=== PATIENT | male | born 1930 | race Caucasian/White ===

== ENCOUNTER 2016-10-15 06:58 | Day surgery (SDC) | payer OTHER, MEDICARE ==
[~2016-10-15 06:58] MED LIST: Lactated Ringers 1,000 ML IV SCH; Lidocaine 1%/Sod Bicarbonate in NS 8.4% 1 ML Syringe PRN; Sodium Chloride 0.9% 10 ML Syringe FLUSH PRN
[2016-10-15] MEDS ORDERED: Lidocaine 1% 2 ML ONE (07:37)
[2016-10-15] MEDS ORDERED: Lidocaine 1% 6 ML ONE (07:38)
[2016-10-15] MEDS ORDERED: fentaNYL 100 MCG/2 ML SDV ONE (07:38)
[2016-10-15] MEDS ORDERED: Propofol 200 MG/20 ML SDV ONE (07:38)
[2016-10-15] MEDS ORDERED: Carvedilol 12.5 MG Tab PO ONE (07:51)
[2016-10-15] MEDS ORDERED: Carvedilol 6.25 MG Tab PO ONE (07:52)
--- NOTE | 2016-10-15 08:03 | PCM.PREANE ---
Preanesthetic Assessment - Procedure Proposed Procedure: Colonoscopy - Anesthesia/Transfusion/Family Hx Anesthesia History: Prior Anesthesia Without Reaction Family History of Anesthesia Reaction: No - Review of Systems General: No Symptoms Pulmonary: Shortness of Breath Cardiovascular: Chest Pain (with palpitations), Palpitations, Dyspnea on Exertion Gastrointestinal: Diarrhea, Hematochezia Other: Reports: Easy Bruising, Thyroid Problems (hypothyroidism) - Physical Assessment NPO Status Date: 10/14/16 NPO Status Time: 20:00 O2 Sat by Pulse Oximetry: 95 Respiratory Rate: 18 Vital Signs: Last Vital Signs Temp 36.5 C 10/15/16 07:20 Pulse 64 10/15/16 07:20 Resp 18 10/15/16 07:20 BP 143/70 H 10/15/16 07:20 Pulse Ox 95 10/15/16 07:20 Weight: 101.1 kg ASA Class: 3 Mental Status: Alert & Oriented x3 Airway Class: Mallampati = 2 Dentition: Reports: Dentures (upper and lower), Edentulous Thyro-Mental Finger Breadths: 3 Mouth Opening Finger Breadths: 3 ROM/Head Extension: Full Lungs: Clear to auscultation, Normal respiratory effort Cardiovascular: Regular Rate, Regular Rhythm, No Murmurs - Lab Values: 09/28/16 from [place] hgb 10.5 PLT 186 lytes normal except mildly elevated creatinine 1.37 - Imaging/EKG Impressions: EKG a.Fib/flutter rate 77 ECHO from 2015 showed LVEF of 50% - Allergies Allergies/Adverse Reactions: Allergies Allergy/AdvReac Type Severity Reaction Status Date / Time Iodinated Contrast Media - Allergy Facial Verified 10/15/16 08:09 Oral and Swelling - Blood Blood Available: No - Anesthesia Plan Beta Krystal: Carvedilol Med Last Dose Date: 10/15/16 Med Last Dose Time: 08:00 - Acknowledgements Anesthesia Type Planned: MAC Pt an Appropriate Candidate for the Planned Anesthesia: Yes Alternatives and Risks of Anesthesia Discussed w Pt/Guardian: Yes Pt/Guardian Understands and Agrees with Anesthesia Plan: Yes PreAnesthesia Questionnaire Cardiovascular History: Reports: Afib, Bypass (2-vessel), CAD, Heart Failure, High cholesterol, Hypertension, Pacemaker Respiratory History: Reports: SOB Gastrointestinal History: Reports: Diverticulosis, GERD Endocrine/Metabolic History: Reports: Hypothyroidism (stable on replacement) Hematologic History: Reports: Anemia - Past Surgical History Cardiovascular Surgical History: Reports: Coronary artery bypass, Pacer GI Surgical History: Reports: Colon (partial colectomy), Colonoscopy, Colostomy (and takedown with reanastomosis), Hernia repair/other Musculoskeletal Surgical History: Reports: Hip replacement, Knee replacement, Shoulder surgery (juliana rotator cuff repair) - SUBSTANCE USE Smoking Status *Q: Never Smoker Tobacco Use Within Last Twelve Months: No Second Hand Smoke Exposure: No Days Per Week of Alcohol Use: 0 (rare use) Recreational Drug Use History: No - HOME MEDS Home Medications: Home Meds Aspirin [Perez Chewable] 81 mg PO DAILY 12/17/13 [History] Carvedilol 6.25 mg PO BID 12/17/13 [History] Folic Acid 2 mg PO DAILY 12/17/13 [History] Furosemide [Lasix] 20 mg PO BID 12/17/13 [History] Multivitamin [Multi Vitamin Daily] 1 tab PO DAILY 12/17/13 [History] Simvastatin [Zocor] 80 mg PO DAILY 12/17/13 [History] Albuterol Sulfate [Proair Respiclick] 2 puff IH QID 10/15/16 [History] Azelastine HCl 1 spray NS BID 10/15/16 [History] Cetirizine [ZyrTEC] 10 mg PO DAILY 10/15/16 [History] Clotrimazole [Clotrimazole 1%] 1 applic TOP BID 10/15/16 [History] Cyanocobalamin (Vitamin B-12) [Vitamin B-12] 250 mcg PO DAILY 10/15/16 [History] Fluticasone Propionate [Flovent] 1 puff IH BID 10/15/16 [History] Hydrocortisone [Hydrocortisone 2.5% Crm] 1 applic TOP DAILY 10/15/16 [History] Levothyroxine 25 mcg PO ACBREAKFAST 10/15/16 [History] Losartan [Cozaar] 25 mg PO DAILY 10/15/16 [History] Metolazone [Zaroxolyn] 5 mg PO WEEKLY 10/15/16 [History] Rivaroxaban [Xarelto] 15 mg PO DAILY 10/15/16 [History] - CURRENT (IN HOUSE) MEDS Current Meds: Current Medications Carvedilol (Coreg) 6.25 mg PO ONETIME ONE Stop: 10/15/16 07:53 Lactated Ringer's (Ringers, Lactated) 1,000 mls @ 125 mls/hr IV ASDIRECTED TEDDY Stop: 10/15/16 23:00 Lidocaine/Sodium Bicarbonate (Buffered Lidocaine 1% In Ns 8.4%) 0.25 ml .XX ONETIME PRN PRN Reason: Prior to IV Start Stop: 10/15/16 18:00 Sodium Chloride (Saline Flush) 10 ml FLUSH ASDIRECTED PRN PRN Reason: Keep Vein Open Stop: 10/15/16 18:00 Discontinued Medications Carvedilol (Coreg) 12.5 mg PO ONETIME ONE Stop: 10/15/16 07:52 Fentanyl (Sublimaze) Confirm Administered Dose 100 mcg .ROUTE .STK-MED ONE Stop: 10/15/16 07:39 Lidocaine HCl (Xylocaine-Mpf 1%) Confirm Administered Dose 2 mls @ as directed .ROUTE .STK-MED ONE Stop: 10/15/16 07:38 Lidocaine HCl (Xylocaine-Mpf 1%) Confirm Administered Dose 6 mls @ as directed .ROUTE .STK-MED ONE Stop: 10/15/16 07:39 Propofol (Diprivan 20 Ml) Confirm Administered Dose 200 mg .ROUTE .STK-MED ONE Stop: 10/15/16 07:39 Preanesthetic Assessment - REVIEW OF SYSTEMS Constitutional: Reports: unintentional weight loss (8 lbs over 2 weeks). Denies : fever, chills, cold symptoms, feeling ill, unintentional weight gain STEEPING PRESS TENDER: Denies: numbness, stroke/TIA, seizure, weakness Respiratory: Reports: shortness of breath. Denies: cough, wheezing Cardiovascular: Reports: palpitations. Denies: blood pressure problem, chest pain, dyspnea on exertion, fainting, lightheadedness GI: Reports: diarrhea (2 weeks ago with hematochezia). Denies: difficulty swallowing, nausea, vomiting Other: Reports: Easy Bruising, Thyroid Problems (hypothyroidism on replacement and stable). Denies: Easy Bleeding, Diabetes, Liver Problems, Sinus Problem, Throat Pain, Neck Pain, Depression, Anxiety - PHYSICAL ASSESSMENT O2 Sat by Pulse Oximetry: 95 RR: 18 Vital Signs: Last Vital Signs Temp 36.5 C 10/15/16 07:20 Pulse 64 10/15/16 07:20 Resp 18 10/15/16 07:20 BP 143/70 H 10/15/16 07:20 Pulse Ox 95 10/15/16 07:20 ASA Class: 3 Mental Status: Alert & Oriented x3 Airway Class: Mallampati = 2 Dentition: Reports: Dentures, Edentulous ROM/Head Extension: Full Respiratory Status: lungs clear to auscultation bilaterally Cardiovascular Status: regular rate & rhythm, normal S1, S2, no murmur - ALLERGIES Allergies/Adverse Reactions: Allergies Allergy/AdvReac Type Severity Reaction Status Date / Time Iodinated Contrast Media - Allergy Facial Verified 10/15/16 08:09 Oral and Swelling - ANESTHESIA PLAN Beta Krystal: Carvedilol Beta-Krystal Last Dose Date: 10/15/16 Beta-Krystal Last Dose Time: 08:00 Anesthesia Type Planned: MAC - ACKNOWLEDGEMENTS Pt an Appropriate Candidate for the Planned Anesthesia: Yes Alternatives and Risks of Anesthesia Discussed w Pt/Guardian: Yes Pt/Guardian Understands and Agrees with Anesthesia Plan: Yes
[2016-10-15] MEDS ORDERED: ePHEDrine/Normal Saline 25 MG/5 ML Syringe ONE (08:37)
--- NOTE | 2016-10-15 08:55 | PCM.OPNOTE ---
- General Post-Op/Procedure Note Date of Surgery/Procedure: 10/15/16 Operative Procedure(s): limited colonoscopy to 20 cm with polypectomy Findings: stenosis and polyp Pre Op Diagnosis: rectal bleeding Post-Op Diagnosis: Same Anesthesia Technique: MAC Primary Surgeon: Robert Muniz EBL in mLs: 0 Complications: None Condition: Good
[2016-10-15 09:38] VITALS: BP 126/74
--- NOTE | 2016-10-15 11:47 | PCM48HPAN ---
Post Anesthesia Note - EVALUATION WITHIN 48HRS OF ANESTHETIC Vital Signs in Normal Range: Yes Patient Participated in Evaluation: Yes Respiratory Function Stable: Yes Airway Patent: Yes Cardiovascular Function Stable: Yes Hydration Status Stable: Yes Pain Control Satisfactory: Yes Nausea and Vomiting Control Satisfactory: Yes Mental Status Recovered: Yes
--- NOTE | 2016-10-15 12:57 | OR ---
DATE OF OPERATION: 10/15/2016 SURGEON: Robert Muniz MD PREOPERATIVE DIAGNOSIS: Rectal bleeding, history of rectal surgery. POSTOPERATIVE DIAGNOSIS: Rectal bleeding, history of rectal surgery. OPERATION PERFORMED: Colonoscopy to 20 cm. 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 Because of the stenosis, unable to advance beyond 20 cm and a polyp was removed by cautery snare and retrieved. ANESTHESIA: Procedure done under IV sedation. DESCRIPTION OF PROCEDURE: The patient was taken to the operating room, placed in a supine position, connected to monitoring equipment, and given IV sedation. The patient placed in left lateral position. Perianal area was inspected, was normal. Rectal exam showed good sphincter tone. A video Olympus colonoscope was then introduced into the rectum and threaded up to about 20 cm of the stenotic area, was unable to pass scope beyond this. At the anastomosis, there was a sessile polyp and this was removed in 2 morsels, the first was the body of the polyp which was removed with cautery snare and retrieved and the base of the polyp was also removed and retrieved and sent 2 separate specimens, the first specimen was the body of the polyp and the second specimen was the base of the polyp. Two vascular clips were then placed on the surgical site. This completed the procedure of limited colonoscopy with polypectomy. The patient tolerated the procedure and sent to recovery room in a stable condition. She will be followed up in the clinic. ESTIMATED BLOOD LOSS: MMODAL /[id number]
== END 2016-10-15 09:55 | disposition home or self-care (01) ==
LOC: JD.SDS 06:58
PROVIDERS: ATTEND Surgery
PROC: 0DBN8ZZ Excision of Sigmoid Colon, Via Natural or Artificial Opening Endoscopic (ICD-10-PCS; principal; 2016-10-15)
DX: D12.8 Benign neoplasm of rectum (principal); K91.89 Other postprocedural complications and disorders of digestive system; K21.9 Gastro-esophageal reflux disease without esophagitis; E78.5 Hyperlipidemia, unspecified; E03.9 Hypothyroidism, unspecified; I48.91 Unspecified atrial fibrillation; I25.10 Atherosclerotic heart disease of native coronary artery without angina pectoris; I11.0 Hypertensive heart disease with heart failure; I50.9 Heart failure, unspecified; E78.00 Pure hypercholesterolemia, unspecified; Z79.01 Long term (current) use of anticoagulants; Z79.82 Long term (current) use of aspirin; Z79.51 Long term (current) use of inhaled steroids; Z79.899 Other long term (current) drug therapy; Z95.0 Presence of cardiac pacemaker; Z95.1 Presence of aortocoronary bypass graft; Z96.649 Presence of unspecified artificial hip joint; Z98.890 Other specified postprocedural states
CPT/HCPCS: 45385; 88305; A9270; J3010; J7050; J7120; 00810; J2704

== ENCOUNTER 2019-04-09 12:37 | Emergency (ER) | payer MEDICARE, OTHER ==
[2019-04-09 12:46] VITALS: BP 140/86; PULSE 87
--- NOTE | 2019-04-09 13:11 | EDM.PDOC ---
ED HPI GENERAL MEDICAL PROBLEM - General Chief Complaint: ENT Problem Stated Complaint: NOSE BLEED Time Seen by Provider: 04/09/19 12:53 Source of Information: Reports: Patient, Family, RN Notes Reviewed History Limitations: Reports: No Limitations - History of Present Illness INITIAL COMMENTS - FREE TEXT/NARRATIVE: Patient is an 88-year-old male who presents to the ED for evaluation of a nosebleed. The patient states that this started around 11:30 this morning and has not stopped since. He states he takes aspirin only. He notes that he is been having issues with nosebleeds on and off for the past 4 months, he has been seen here multiple times and was seen by ENT doctor last week, he states that the ENT doctor did not cauterize or do much at all, they gave him some saline moisturizing gel to try and recommended sinus rinses. He notes that the bleeding comes from his right nostril only. He did not try any sort of modalities to stop the bleeding today other than holding direct pressure. He denies any trauma to the area. He states he has been using nasal saline gel but has not use sinus rinses as he was afraid that it would let bleeding "let loose". - Related Data Allergies Allergy/AdvReac Type Severity Reaction Status Date / Time Iodinated Contrast Media Allergy Facial Verified 04/09/19 12:46 Swelling Home Meds: Home Meds Aspirin [Perez Chewable] 81 mg PO DAILY 12/17/13 [History] Folic Acid 2 mg PO DAILY 12/17/13 [History] Furosemide [Lasix] 30 mg PO DAILY 12/17/13 [History] Simvastatin [Zocor] 80 mg PO DAILY 12/17/13 [History] Cyanocobalamin (Vitamin B-12) [Vitamin B-12] 250 mcg PO DAILY 10/15/16 [History] Levothyroxine 50 mcg PO ACBREAKFAST 10/15/16 [History] Metoprolol Succinate [Toprol XL 100mg] 100 mg PO DAILY 03/09/19 [History] Vit C/E/Zn/Coppr/Lutein/Zeaxan [Preservision Areds 2 Softgel] 1 cap PO DAILY 07/16 [History] Past Medical History HEENT History: Reports: Impaired Vision Cardiovascular History: Reports: Afib, Bypass, CAD, Heart Failure, High Cholesterol, Hypertension, Pacemaker Respiratory History: Reports: SOB Gastrointestinal History: Reports: Diverticulosis, GERD Neurological History: Reports: None Psychiatric History: Reports: None Endocrine/Metabolic History: Reports: Hypothyroidism Hematologic History: Reports: Anemia, Anticoagulation Therapy Immunologic History: Reports: None Oncologic (Cancer) History: Reports: None Dermatologic History: Reports: None - Infectious Disease History Infectious Disease History: Reports: None - Past Surgical History Head Surgeries/Procedures: Reports: None Cardiovascular Surgical History: Reports: Coronary Artery Bypass, Pacer GI Surgical History: Reports: Colon, Colonoscopy, Colostomy, Hernia Repair/Other Musculoskeletal Surgical History: Reports: Hip Replacement, Knee Replacement, Shoulder Surgery Social & Family History - Tobacco Use Smoking Status *Q: Never Smoker - Caffeine Use Caffeine Use: Reports: Coffee - Recreational Drug Use Recreational Drug Use: No ED ROS ENT - Review of Systems Review Of Systems: See Below Constitutional: Denies: Fever HEENT: Reports: Nosebleed (R nare) Respiratory: Denies: Shortness of Breath Cardiovascular: Denies: Chest Pain Endocrine: Reports: No Symptoms GI/Abdominal: Reports: No Symptoms : Reports: No Symptoms Musculoskeletal: Reports: No Symptoms Skin: Reports: No Symptoms Neurological: Reports: No Symptoms Psychiatric: Reports: No Symptoms Hematologic/Lymphatic: Reports: No Symptoms Immunologic: Reports: No Symptoms ED EXAM, ENT - Physical Exam Exam: See Below Exam Limited By: No Limitations General Appearance: Alert, WD/WN, No Apparent Distress Eye Exam: Bilateral Eye: EOMI, Normal Inspection, PERRL Ears: Normal External Exam, Normal Canal, Hearing Grossly Normal, Normal TMs Nose: Normal Inspection, Dried Blood (R nare, no active sight of seeping or bleeding). No: Active Bleeding Mouth/Throat: Normal Inspection, Normal Gums, Normal Lips, Normal Oropharynx ( scant amount of red blood draining in oropharynx), Normal Teeth Head: Atraumatic, Normocephalic Neck: Normal Inspection, Supple, Non-Tender, Full Range of Motion Respiratory/Chest: No Respiratory Distress, Lungs Clear, Normal Breath Sounds, No Accessory Muscle Use, Chest Non-Tender Cardiovascular: Normal Peripheral Pulses, Regular Rate, Rhythm, No Murmur Neurological: Alert, Oriented, Normal Cognition, No Motor/Sensory Deficits Psychiatric: Normal Affect, Normal Mood Skin: Warm, Dry, Intact, Normal Color, No Rash Course - Vital Signs Last Recorded V/S: Last Vital Signs Temp 96.8 F 04/09/19 12:43 Pulse 87 04/09/19 12:43 Resp 18 04/09/19 12:43 BP 140/86 04/09/19 12:43 Pulse Ox 96 04/09/19 12:43 - Orders/Labs/Meds Orders: Active Orders 24 hr Category Date Time Status Communication Order [RC] STAT Care 04/09/19 13:14 Ordered - Re-Assessments/Exams Free Text/Narrative Re-Assessment/Exam: 04/09/19 13:11 Patient presents with a long history of nosebleeds. He states these come only from the right side. I did remove the packing the patient had present, and I did not appreciate any signs of active bleeding at this time. I will have the nurse repacked his nose and put pressure on this and have the patient suck on some ice chips to see if this further resolves the bleeding. 04/09/19 14:43 Reevaluation of the patient at bedside did reveal one area on the right medial nare that was suspicious for the area of bleeding. This area was cauterized with silver nitrate sticks, the patient will be observed for another 15-20 minutes to make sure that the bleeding has in fact stopped. The patient divulged to me that he does use oxygen therapy but wears a mask for this. And was wondering if this could be cause of his issues. Is very well likely could be an issue due to the dryness of oxygen therapy. We'll recommend that he continue with his saline nasal gel as the ENT provided. 04/09/19 15:04 Patient was reassessed at bedside, and bleeding is nonexistent at this time. We 'll discharge home with general recommendations. Departure - Departure Time of Disposition: 15:05 Disposition: Home, Self-Care 01 Condition: Fair Clinical Impression: Anterior epistaxis - Discharge Information *PRESCRIPTION DRUG MONITORING PROGRAM REVIEWED*: No *COPY OF PRESCRIPTION DRUG MONITORING REPORT IN PATIENT NOAH: No Instructions: Nosebleed, [id number] Referrals: PCP,Not In Area [Primary Care Provider] - Forms: ED Department Discharge Additional Instructions: You were evaluated in the ED today for your right sided nosebleed. An area of bleeding concern was cauterized with silver nitrate at today's visit. Recommend that you use the saline nasal gel as previously directed by your ENT for further relief of symptoms. This will help to moisturize the nasal passages and hopefully prevent further nosebleeds. Please return to the ED if your symptoms should change or worsen. - My Orders Last 24 Hours: My Active Orders 04/09/19 13:14 Communication Order [RC] STAT - Assessment/Plan Last 24 Hours: My Active Orders 04/09/19 13:14 Communication Order [RC] STAT
== END 2019-04-09 15:16 | disposition home or self-care (01) ==
LOC: JD.ED 12:37
DX: R04.0 Epistaxis (principal); I11.0 Hypertensive heart disease with heart failure; I50.9 Heart failure, unspecified; E78.00 Pure hypercholesterolemia, unspecified; K21.9 Gastro-esophageal reflux disease without esophagitis; E03.9 Hypothyroidism, unspecified; Z91.041 Radiographic dye allergy status; Z79.82 Long term (current) use of aspirin; Z79.899 Other long term (current) drug therapy
CPT/HCPCS: 30901; 30905; 99282; 99283-25